=== PATIENT | male | born 1990 | race Caucasian/White ===

== ENCOUNTER 2016-05-08 09:58 | Emergency (ER) | payer OTHER ==
[~2016-05-08] VITALS: Ht 175.2 cm; Wt 90.7 kg
[~2016-05-08 09:58] MED LIST: AMOXICILLIN500 MG PO; CIPRO500 MG PO; FLEXERIL5 MG PO; KEFLEX500 MG PO; MOTRIN800 MG PO; Motrin,Rufen800 MG PO; NKHM; PREDNICOT20 MG PO
[2016-05-08 10:29] VITALS: BP 148/57
[2016-05-08] MEDS ORDERED: CEPHALEXIN500 M1 PO (11:38)
== END 2016-05-08 11:37 | disposition home or self-care (01) ==
LOC: ED 09:58
DX: S61.011A Laceration without foreign body of right thumb without damage to nail, initial encounter (principal); F17.200 Nicotine dependence, unspecified, uncomplicated; Z91.041 Radiographic dye allergy status; W26.0XXA Contact with knife, initial encounter; Y93.89 Activity, other specified; Y92.9 Unspecified place or not applicable; Y99.9 Unspecified external cause status

== ENCOUNTER 2022-12-14 04:58 | Emergency (ER) | payer BC ==
[~2022-12-14 04:58] MED LIST changes: +CEPHALEXIN500 M1 PO
[2022-12-14 05:27] VITALS: BP 144/75
[2022-12-14] MEDS ORDERED: PREDNISONE50 MG PO (05:28)
== END 2022-12-14 05:40 | disposition home or self-care (01) ==
LOC: ED 04:58
DX: T78.40XA Allergy, unspecified, initial encounter (principal); Z91.041 Radiographic dye allergy status; X58.XXXA Exposure to other specified factors, initial encounter

== ENCOUNTER 2023-09-09 16:09 | Emergency (ER) | payer BC ==
[~2023-09-09] VITALS: Ht 175.2 cm; Wt 117.9 kg
[~2023-09-09 16:09] MED LIST changes: +PREDNISONE50 MG PO
[2023-09-09 16:17] VITALS: BP 132/29
[2023-09-09] MEDS ORDERED: Dexamethasone Sodium Phospha 20 MG/5 ML VIAL IM ONE (16:25)
[2023-09-09] MEDS ORDERED: Dexamethasone Sodium Phospha 20 MG/5 ML VIAL IV ONE (16:25)
[2023-09-09] MEDS ORDERED: FAMOTIDINE 50 ML IV ONE (16:25)
[2023-09-09] MEDS ORDERED: EPIPEN 2-P0.3 MG/0.3 IJ (16:41)
== END 2023-09-09 18:09 | disposition home or self-care (01) ==
LOC: ED 16:09
DX: L50.9 Urticaria, unspecified (principal); T78.1XXA Other adverse food reactions, not elsewhere classified, initial encounter; Z91.041 Radiographic dye allergy status; Z91.018 Allergy to other foods; X58.XXXA Exposure to other specified factors, initial encounter